=== PATIENT | female | born 1990 | race Native Hawaiian/Other Pacific Islander ===

== ENCOUNTER 2019-04-27 21:03 | Emergency (ER) | payer SELFPAY ==
--- NOTE | 2019-04-27 21:16 | ED Physician Documentation ---
General Adult - HISTORIAN Historian: patient - HPI Stated Complaint: dental pain Chief Complaint: General Adult Onset: days ago Timing: still present Severity: moderate Further Comments: yes (PT is a 29 yo female with dental pain. Pain began last evening and pt has been unable to sleep. No fever.) - ROS CONST: no problems EYES/ENT: other (dental pain) CVS/RESP: none GI/: none MS/SKIN/LYMPH: none - PAST HX Past History: other (thyroid d/o) Allergies/Adverse Reactions: Allergies Allergy/AdvReac Type Severity Reaction Status Date / Time amoxicillin Allergy Verified 04/27/19 21:35 Penicillins Allergy Verified 04/27/19 21:35 Home Medications: Ambulatory Orders Medication Instructions Recorded Levothyroxine Sodium 25 mg PO DAILY 04/27/19 - SOCIAL HX Smoking History: quit greater than 1 year - FAMILY HX Family History: No - REVIEWED ASSESSMENTS Nursing Assessment Reviewed: Yes Vitals Reviewed: Yes Progress - Progress Progress: Laura (5/325). 2 tablets in ER. Rx Clindamycin 300 mg. Take one every 6 hours for 10 days. 1st dose in ER. Rx Laura (5/325). Take one or two tablets by mouth every 4 to 6 hours as needed for moderate to severe pain. General Adult Physical Exam - PHYSICAL EXAM GENERAL APPEARANCE: moderate distress EENT: other (dental tenderness R lower jaw) NECK: normal inspection, supple RESPIRATORY: no resp distress, chest non-tender, breath sounds normal CVS: reg rate & rhythm, heart sounds normal BACK: normal inspection SKIN: warm/dry, normal color EXTREMITIES: non-tender, normal range of motion, no evidence of injury NEURO: oriented X3, motor nml, sensation nml Discharge Clincal Impression: Pain, dental Condition: Good Disposition: 01 HOME, SELF-CARE Decision to Admit: NO Decision Time: 21:49
[2019-04-27] MEDS: CLINDAMYCIN HCL 150 MG CAPSULE PO ONE (21:30)
[2019-04-27] MEDS: HYDROcodone /APAP 5/325 1 EACH TABLET PO ONE ×2 (21:30→21:38)
[2019-04-27 21:58] VITALS: BP 148/69
== END 2019-04-27 21:55 | disposition home or self-care (01) ==
LOC: ED 21:03
DX: K08.89 Other specified disorders of teeth and supporting structures (principal); Z87.891 Personal history of nicotine dependence
CPT/HCPCS: 99283; 99284; A9270